=== PATIENT | female | born 2000 | race African-American/Black ===

== ENCOUNTER 2020-09-24 13:48 | Emergency (ER) | payer SELFPAY ==
[~2020-09-24] VITALS: Ht 154.9 cm; Wt 80.0 kg
[2020-09-24] MEDS ORDERED: IBUPROFEN IB200 MG PO (14:08)
[2020-09-24] MEDS ORDERED: TYLENOL # 31 EA PO (14:08)
[2020-09-24] MEDS ORDERED: CLEOCIN HCL300 MG PO (14:08)
[2020-09-24] MEDS ORDERED: CLINDAMYCIN HCL 150 MG CAP PO ONE (14:15)
[2020-09-24] MEDS ORDERED: IBUPROFEN 200 MG TAB PO ONE (14:15)
[2020-09-24] MEDS ORDERED: ACETAMINOPHEN 325 MG TAB PO ONE (14:15)
[2020-09-24] MEDS ORDERED: ACETAMINOPHEN 325 MG TAB ONE (14:21)
[2020-09-24] MEDS ORDERED: LEVOFLOXACIN 500 MG TAB ONE (14:21)
[2020-09-24] MEDS ORDERED: IBUPROFEN 600 MG TAB ONE (14:21)
== END 2020-09-24 14:19 | disposition home or self-care (01) ==
LOC: FSED 14:03
DX: K01.1 Impacted teeth (principal); K02.9 Dental caries, unspecified; D64.9 Anemia, unspecified; R01.1 Cardiac murmur, unspecified
CPT/HCPCS: 99282